=== PATIENT | female | born 1960 | race Two or more races ===

== ENCOUNTER 2020-03-04 11:57 | Emergency (ER) | payer MEDICAID, OTHER ==
[~2020-03-04] VITALS: Ht 152.4 cm; Wt 72.6 kg
[2020-03-04 13:25] VITALS: BP 132/71
== END 2020-03-04 13:25 | disposition home or self-care (01) ==
LOC: ER 11:59
DX: J06.9 Acute upper respiratory infection, unspecified (principal); G43.909 Migraine, unspecified, not intractable, without status migrainosus
CPT/HCPCS: 71045-TC

== ENCOUNTER 2020-03-24 13:22 | Emergency (ER) | payer MEDICAID ==
[~2020-03-24] VITALS: Ht 154.9 cm; Wt 78.0 kg
--- NOTE | 2020-03-24 13:55 | NUR ---
bib family, cough,congestion worst at night time. took antibiocs. no relief. Patient a/ox4. breathing even and unlabored, no sob noted, needs attended, kept comfortable.
--- NOTE | 2020-03-24 14:54 | NUR ---
dr. bailon at bedside for eval.
--- NOTE | 2020-03-24 16:40 | NUR ---
Patient discharged to home in stable condition. Written and verbal after care instructions given. Patient verbalizes understanding of instruction.
[2020-03-24 16:52] VITALS: BP 133/75
== END 2020-03-24 16:52 | disposition home or self-care (01) ==
LOC: ER 13:22
DX: R05 Cough (principal); R09.81 Nasal congestion; G43.909 Migraine, unspecified, not intractable, without status migrainosus
CPT/HCPCS: 71045-TC

== ENCOUNTER 2020-09-06 07:33 | Emergency (ER) | payer MEDICAID ==
[~2020-09-06] VITALS: Ht 154.9 cm; Wt 72.6 kg
[2020-09-06 07:43] VITALS: BP 120/77
[2020-09-06] MEDS ORDERED: SULF1TAB48 PO (07:52)
--- NOTE | 2020-09-06 07:59 | NUR ---
Patient discharged to home in stable condition. Written and verbal after care instructions given. Patient verbalizes understanding of instruction.
== END 2020-09-06 07:59 | disposition home or self-care (01) ==
LOC: ER 07:36
DX: L08.9 Local infection of the skin and subcutaneous tissue, unspecified (principal); M79.645 Pain in left finger(s); G43.909 Migraine, unspecified, not intractable, without status migrainosus

== ENCOUNTER 2021-02-04 21:35 | Emergency (ER) | payer MEDICAID ==
[~2021-02-04] VITALS: Ht 154.9 cm; Wt 72.6 kg
[~2021-02-04 21:35] MED LIST: SULF1TAB48 PO
--- NOTE | 2021-02-04 21:45 | NUR ---
PATIENT BIBFAMILY C/O INGUINAL RASH FROM HAIR REMOVAL CREAM OVER 1 WEEK. PATIENT IS A/O X 4, RR EVEN AND UNLABORED, NO SIGNS OF SOB NOTED. PATIENT CONNCETED TO [employer].
[2021-02-04] MEDS ORDERED: CLOT15CR27 TP (22:13)
[2021-02-04] MEDS ORDERED: NYST15CR TP (22:15)
[2021-02-04 22:30] VITALS: BP 118/76
--- NOTE | 2021-02-04 22:30 | NUR ---
Patient discharged to home in stable condition. Written and verbal after care instructions given. Patient verbalizes understanding of instruction.
== END 2021-02-04 22:31 | disposition home or self-care (01) ==
LOC: ER 21:57
DX: B37.9 Candidiasis, unspecified (principal); G43.909 Migraine, unspecified, not intractable, without status migrainosus

== ENCOUNTER 2022-08-24 07:30 | Emergency (ER) | payer MEDICAID ==
[~2022-08-24] VITALS: Ht 144.8 cm; Wt 72.6 kg
[~2022-08-24 07:30] MED LIST changes: +NYST15CR TP
--- NOTE | 2022-08-24 07:30 | NUR ---
BIB FAMILY C/O COUGHING UP BLOOD X1WEEK AND A RUNNY NOSE, STARTED TO HAVE EPISTAXIS TODAY. VITALS ARE WITHIN NORMAL LIMITS, NO RESPIRATORY DISTRESS NOTED AT THIS TIME. AWAITING MD BARRIENTOS.
--- NOTE | 2022-08-24 08:08 | NUR ---
IV ESTABLISHED R AC 20G. LABS COLLECTED AND SENT
--- NOTE | 2022-08-24 08:09 | NUR ---
X RAY AT BEDSIDE
[2022-08-24 08:11] LABS: BASOPHILS % (AUTO) 0.7 % (0.0-2.0); EOSINOPHILS % (AUTO) 2.8 % (0.0-6.0); HEMATOCRIT 40 % (33-45); HEMOGLOBIN 13.1 g/dL (11.5-14.8); LYMPHOCYTES # (AUTO) 1.6 K/uL (0.8-4.8); LYMPHOCYTES % (AUTO) 30.2 % (20.0-44.0); MEAN CORPUSCULAR HGB CONC 33 g/dl (31.0-36.0); MEAN CORPUSCULAR VOLUME 92 fL (82-100); MONOCYTES # (AUTO) 0.4 K/uL (0.1-1.30); MONOCYTES % (AUTO) 8.1 % (2.0-12.0); NEUTROPHILS # (AUTO) 3.2 K/uL (1.8-8.9); NEUTROPHILS % (AUTO) 58.2 % (43.0-81.0); PLATELET COUNT (AUTO) 419 K/uL (150-450); RED BLOOD CELL COUNT(AUTO) 4.31 MIL/uL (4.0-5.2); WHITE BLOOD COUNT (AUTO) 5.4 K/uL (4.3-11.0)
[2022-08-24 08:25] LABS: D-DIMER 0.19 mg/L(FEU (0.17-0.50)
--- NOTE | 2022-08-24 08:54 | NUR ---
COVID AND FLU TEST COLLECTED AND SENT
[2022-08-24 09:22] LABS: CALCIUM, SERUM 9.4 mg/dL (8.5-10.1); CARBON DIOXIDE 30 mmol/L (21-32); CHLORIDE 100 mmol/L (98-107); CREATININE 0.8 mg/dL (0.6-1.3); GLUCOSE 137 mg/dL (74-106); POTASSIUM 4.5 mmol/L (3.5-5.1); SODIUM SERUM 138 mmol/L (136-145); UREA NITROGEN, BLOOD 11 mg/dL (7-18)
[2022-08-24 09:54] VITALS: BP 129/82
== END 2022-08-24 09:54 | disposition home or self-care (01) ==
LOC: ER 07:41
DX: J06.9 Acute upper respiratory infection, unspecified (principal); G43.909 Migraine, unspecified, not intractable, without status migrainosus; Z20.822 Contact with and (suspected) exposure to COVID-19; Z79.899 Other long term (current) drug therapy
CPT/HCPCS: 99285; 71045; 87426; 93005; 87804 ×2; 85025; 80048; 85378; 36415; 84484; 85730; C9803